=== PATIENT | female | born 1980 | race Caucasian/White ===

== ENCOUNTER 2018-10-27 13:48 | Outpatient (CLI) | payer MEDICARE, MEDICAID ==
--- NOTE | 2018-10-27 14:28 | RAD ---
RIGHT WRIST 3 VIEWS: Date: 10/27/18 HISTORY: Fall. Right wrist pain. FINDINGS/IMPRESSION: There is an impacted fracture involving the distal radial metaphysis. POS: OFF
== END 2018-10-27 13:49 | disposition home or self-care (01) ==
LOC: BICRAD 13:48
PROVIDERS: ATTEND Family Medicine
DX: M25.531 Pain in right wrist (principal); S52.501A Unspecified fracture of the lower end of right radius, initial encounter for closed fracture

== ENCOUNTER 2021-07-13 10:00 | Emergency (ER) | payer MEDICARE, MEDICAID | END 2021-07-13 12:53 | disposition left against medical advice (07) | LOC: ERS 10:00 | DX: Z53.21 Procedure and treatment not carried out due to patient leaving prior to being seen by health care provider (principal) ==

== ENCOUNTER 2022-05-25 20:02 | Emergency (ER) | payer MEDICAID, MEDICARE, SELFPAY ==
[2022-05-25] MEDS ORDERED: Ketorolac Tromethamine 30 MG/ML VIAL ONE (20:15)
== END 2022-05-25 23:34 | disposition home or self-care (01) ==
LOC: ERS 20:02
DX: S32.020A Wedge compression fracture of second lumbar vertebra, initial encounter for closed fracture (principal); I10 Essential (primary) hypertension; W17.89XA Other fall from one level to another, initial encounter
CPT/HCPCS: 72100; 72170; 96372; J1885